=== PATIENT | male | born 1960 | race Caucasian/White ===

== ENCOUNTER 2016-12-19 17:11 | Inpatient (IN) | payer BC ==
[~2016-12-19] VITALS: Ht 185.4 cm; Wt 84.7 kg
[2016-12-19 17:18] VITALS: BP 203/112; PULSE 69; RESP 16; TEMP 98.1; O2SAT 98
[2016-12-19] MEDS ORDERED: PROPOFOL 200 MG/20 ML AMP IV ONE ×2 (17:30→17:45)
[2016-12-19 17:51] VITALS: O2SAT 99
--- NOTE | 2016-12-19 17:59 | PD ---
HPI Chief Complaint: Fall Time Seen by Provider: 17:21 Travel History International Travel<30 days: No Contact w/Intl Traveler<30days: No Traveled to known affect area: No History of Present Illness HPI 56-year-old male that presents to the ED for evaluation of fall. Per patient he was on a ladder doing some yardwork when I was go close to him and trying to prevent himself from getting stung he jumped from the ladder about 4 feet and landed on his left foot. Patient had immediate pain and deformity to the left ankle. Ambulance was called and brought him here. Patient has an obvious deformity to the left ankle with likely dislocation and fracture. No sign of skin involvement but definite deformity noted. Per patient the pain is 7 out of 10. Patient was given 10 mg of morphine via EVAC He denies any prior injuries to this ankle. No head injury or chest pain. No back pain. No injury in any other area. He has no orthopedic doctor. He has no allergies to medication. Denies any chest pain. No heart history. No allergies to medication. PFSH Past Medical History ?: Not Social History Alcohol Use: No Tobacco Use: No Substance Use: No Allergies-Medications (Allergen,Severity, Reaction): Coded Allergies: No Known Allergies (Unverified , 12/19/16) Reported Meds & Prescriptions Reported Meds & Active Scripts Active Reported B12 (Cyanocobalamin) 1,000 Mcg Tab Multi Vitamin Mens (Multiple Vitamin) 1 Tab Tab Review of Systems Except as stated in HPI: all other systems reviewed are Neg Physical Exam Narrative GENERAL: SKIN: Warm and dry. HEAD: Atraumatic. Normocephalic. EYES: Pupils equal and round. No scleral icterus. No injection or drainage. ENT: No nasal bleeding or discharge. Mucous membranes pink and moist. Tongue is midline. No uvula deviation. NECK: Trachea midline. No JVD. CARDIOVASCULAR: Regular rate and rhythm. No murmurs, S3, S4. RESPIRATORY: No accessory muscle use. Clear to auscultation. Breath sounds equal bilaterally. GASTROINTESTINAL: Abdomen soft, non-tender, nondistended. Hepatic and splenic margins not palpable. MUSCULOSKELETAL: Extremities without clubbing, cyanosis, or edema. No obvious deformities. Full range of motion of the upper and lower extremities bilaterally. 2+ pulses bilaterally. Patient has significant deformity to the ankle with the foot displaced laterally. Tenting of the skin noted on the medial malleolus but no open skin noted. Good capillary refill in the toes. Unable to move the ankle but able to move the toes. NEUROLOGICAL: Awake and alert. No obvious cranial nerve deficits. Motor grossly within normal limits. Five out of 5 muscle strength in the arms and legs. Normal speech. PSYCHIATRIC: Appropriate mood and affect; insight and judgment normal. Data Data Last Documented VS Vital Signs Date Time Temp Pulse Resp B/P (MAP) Pulse Ox O2 Delivery O2 Flow Rate FiO2 12/19/16 18:23 61 16 172/90 (117) 96 Room Air 12/19/16 17:51 2.00 12/19/16 17:18 98.1 Orders Orders Ankle, Limited (Ap&Lat) (12/19/16 ) Propofol 200 Mg/20 Ml Inj (Diprivan 200 (12/19/16 17:30) Splint Or Brace Apply/Monitor (12/19/16 17:31) Electrocardiogram (12/19/16 17:31) Complete Blood Count With Diff (12/19/16 17:31) Basic Metabolic Panel (Bmp) (12/19/16 17:31) Prothrombin Time / Inr (Pt) (12/19/16 17:31) Act Partial Throm Time (Ptt) (12/19/16 17:31) Propofol 200 Mg/20 Ml Inj (Diprivan 200 (12/19/16 17:45) Ankle, Limited (Ap&Lat) (12/19/16 ) Hydromorphone Pf Inj (Dilaudid Pf Inj) (12/19/16 18:00) Chest, Single Ap (12/19/16 ) Fiberglass Short Leg Splint Ad (12/19/16 ) Fiberglass Sugartong Sp Ad Sl (12/19/16 ) Admit Order (Ed Use Only) (12/19/16 19:02) Consult Orthopedic (12/19/16 ) Admit To Inpatient (12/19/16 ) Vital Signs (Adult) Q4H (12/19/16 19:01) Activity Bed Rest (12/19/16 19:01) Diet Npo (12/20/16 Breakfast) Diet Regular Basic (12/19/16 Dinner) Sodium Chlor 0.9% 1000 Ml Inj (Ns 1000 M (12/19/16 19:01) Sodium Chloride 0.9% Flush (Ns Flush) (12/19/16 19:15) Sodium Chloride 0.9% Flush (Ns Flush) (12/19/16 21:00) Ondansetron Inj (Zofran Inj) (12/19/16 19:15) Comprehensive Metabolic Panel (12/20/16 06:00) Complete Blood Count With Diff (12/20/16 06:00) Acetaminophen (Tylenol) (12/19/16 19:15) Acetamin-Hydrocod 325-5 Mg ([place] 5-325 (12/19/16 19:15) Hydromorphone Pf Inj (Dilaudid Pf Inj) (12/19/16 19:15) Docusate Sodium-Senna (Nimisha-Colace) (12/19/16 21:00) Magnesium Hydroxide Liq (Milk Of Magnesi (12/19/16 19:15) Sennosides (Senokot) (12/19/16 19:15) Bisacodyl Supp (Dulcolax Supp) (12/19/16 19:15) Lactulose Liq (Lactulose Liq) (12/19/16 19:15) Inpatient Certification (12/19/16 ) Metoprolol Tartrate (Lopressor) (12/19/16 21:00) Labs Laboratory Tests Test 12/19/16 18:10 White Blood Count 4.8 TH/MM3 Red Blood Count 3.86 MIL/MM3 Hemoglobin 13.2 GM/DL Hematocrit 38.5 % Mean Corpuscular Volume 99.7 FL Mean Corpuscular Hemoglobin 34.2 PG Mean Corpuscular Hemoglobin Concent 34.3 % Red Cell Distribution Width 13.3 % Platelet Count 253 TH/MM3 Mean Platelet Volume 7.3 FL Neutrophils (%) (Auto) 58.8 % Lymphocytes (%) (Auto) 26.7 % Monocytes (%) (Auto) 12.0 % Eosinophils (%) (Auto) 1.8 % Basophils (%) (Auto) 0.7 % Neutrophils # (Auto) 2.8 TH/MM3 Lymphocytes # (Auto) 1.3 TH/MM3 Monocytes # (Auto) 0.6 TH/MM3 Eosinophils # (Auto) 0.1 TH/MM3 Basophils # (Auto) 0.0 TH/MM3 CBC Comment DIFF FINAL Differential Comment Prothrombin Time 11.6 SEC Prothromb Time International Ratio 1.0 RATIO Activated Partial Thromboplast Time 24.6 SEC MDM Medical Decision Making Medical Screen Exam Complete: Yes Emergency Medical Condition: Yes Medical Record Reviewed: Yes Interpretation(s) CBC & BMP Diagram 12/19/16 18:10 coags WNL Last Impressions Chest X-Ray 12/19/16 0000 Signed Impressions: Service Date/Time: Monday, December 19, 2016 18:03 - CONCLUSION: Suspected early or mild left base pneumonia. Patrice Fenton MD Ankle X-Ray 12/19/16 0000 Signed Impressions: Service Date/Time: Monday, December 19, 2016 17:59 - CONCLUSION: Interim reduction and casting of the fracture dislocation of the left ankle into near-anatomic alignment. Patrice Fenton MD Differential Diagnosis Fracture versus dislocation versus bruise versus contusion versus fall Narrative Course 56-year-old that presents to the ED for evaluation of injury to his right ankle. Patient was properly examined and was found to have signs and symptoms consistent appears to be fracture dislocation. X-ray was done and show fracture dislocation of the left ankle. Case discussed immediately with my attending Dr. Main who evaluated the patient and recommends conscious sedation. After explaining procedure to the patient and she agreed to it conscious sedation was performed. Please refer to my attendings note. This was performed under my attending supervision. We were able to get good reduction but fracture still present and unstable. X-ray was done and show fracture. Dislocation appears to be reduced. Labs were ordered. Case will be consulted with orthopedic surgeon. Patient was given IV pain meds. Case discussed with Dr. Mann who recommends admission to medicine for surgery tomorrow. Wants me to put a consult to Dr. Blake. Case discussed with Dr. Myers who agrees to admission. Diagnosis Primary Impression: Bimalleolar fracture of left ankle Qualified Codes: S82.842A - Displaced bimalleolar fracture of left lower leg, initial encounter for closed fracture Admitting Information Admitting Physician Requests: Observation Johnathan Keller Dec 19, 2016 17:59
[2016-12-19] MEDS ORDERED: HYDROmorphone HCL PF 1 MG/ML VIAL IV PUSH ONE (18:00)
--- NOTE | 2016-12-19 18:07 | RADRPT ---
EXAM DATE/TIME: 12/19/2016 17:59 [facility] COMPARISON: ANKLE LEFT LIMITED (AP&LAT), December 19, 2016, 17:27. INDICATIONS : Post reduction left ankle, fell off ladder MEDICAL HISTORY : None. SURGICAL HISTORY : None. ENCOUNTER: Subsequent ACUITY: 1 day PAIN SCORE: 0/10 LOCATION: Left Ankle FINDINGS: Ankle dislocation as well as the medial and lateral malleoli fractures have been reduced and casted. Alignment is near-anatomic. CONCLUSION: Interim reduction and casting of the fracture dislocation of the left ankle into near-anatomic alignm ent. Patrice Fenton MD on December 19, 2016 at 18:05 Board Certified Radiologist. This report was verified electronically.
--- NOTE | 2016-12-19 18:08 | RADRPT ---
EXAM DATE/TIME: 12/19/2016 17:27 [facility] COMPARISON: No previous studies available for comparison. INDICATIONS : Left ankle pain, fell off ladder MEDICAL HISTORY : None. SURGICAL HISTORY : None. ENCOUNTER: Initial ACUITY: 1 day PAIN SCORE: 10/10 LOCATION: Left Ankle FINDINGS: There is evidence of severe dislocation of the talus in relation to the distal tibia and fibula. Th ere are acute displaced fractures involving the medial malleolus and distal fibular shaft also. CONCLUSION: Severe lateral dislocation of the talus in relation to the distal tibia and fibula with acute displac ed fractures of the medial malleolus and distal shaft of the fibula. Earl Duque MD on December 19, 2016 at 17:34 Board Certified Radiologist. This report was verified electronically.
--- NOTE | 2016-12-19 18:12 | RADRPT ---
EXAM DATE/TIME: 12/19/2016 18:03 [facility] COMPARISON: No previous studies available for comparison. INDICATIONS : Cough. MEDICAL HISTORY : None. SURGICAL HISTORY : None. ENCOUNTER: Initial ACUITY: 1 day PAIN SCORE: 0/10 LOCATION: Bilateral chest FINDINGS: Mild hazy infiltrates in the left mid and lower lung. No pleural effusion seen. No pneumothorax. Righ t lung is clear. Normal heart size. CONCLUSION: Suspected early or mild left base pneumonia. Patrice Fenton MD on December 19, 2016 at 18:10 Board Certified Radiologist. This report was verified electronically.
[2016-12-19 18:23] VITALS: BP 172/90; PULSE 61; RESP 16; O2SAT 96
[2016-12-19] MEDS ORDERED: MULTTAB4 (18:29)
[2016-12-19] MEDS ORDERED: CYAN1TAB24 (18:29)
--- NOTE | 2016-12-19 18:29 | PD ---
Data Data Last Documented VS Vital Signs Date Time Temp Pulse Resp B/P (MAP) Pulse Ox O2 Delivery O2 Flow Rate FiO2 12/19/16 18:23 61 16 172/90 (117) 96 Room Air 12/19/16 17:51 2.00 12/19/16 17:18 98.1 Orders Orders Ankle, Limited (Ap&Lat) (12/19/16 ) Propofol 200 Mg/20 Ml Inj (Diprivan 200 (12/19/16 17:30) Splint Or Brace Apply/Monitor (12/19/16 17:31) Electrocardiogram (12/19/16 17:31) Complete Blood Count With Diff (12/19/16 17:31) Basic Metabolic Panel (Bmp) (12/19/16 17:31) Prothrombin Time / Inr (Pt) (12/19/16 17:31) Act Partial Throm Time (Ptt) (12/19/16 17:31) Propofol 200 Mg/20 Ml Inj (Diprivan 200 (12/19/16 17:45) Ankle, Limited (Ap&Lat) (12/19/16 ) Hydromorphone Pf Inj (Dilaudid Pf Inj) (12/19/16 18:00) Chest, Single Ap (12/19/16 ) Fiberglass Short Leg Splint Ad (12/19/16 ) Fiberglass Sugartong Sp Ad Sl (12/19/16 ) Labs Laboratory Tests Test 12/19/16 18:10 White Blood Count 4.8 TH/MM3 Red Blood Count 3.86 MIL/MM3 Hemoglobin 13.2 GM/DL Hematocrit 38.5 % Mean Corpuscular Volume 99.7 FL Mean Corpuscular Hemoglobin 34.2 PG Mean Corpuscular Hemoglobin Concent 34.3 % Red Cell Distribution Width 13.3 % Platelet Count 253 TH/MM3 Mean Platelet Volume 7.3 FL Neutrophils (%) (Auto) 58.8 % Lymphocytes (%) (Auto) 26.7 % Monocytes (%) (Auto) 12.0 % Eosinophils (%) (Auto) 1.8 % Basophils (%) (Auto) 0.7 % Neutrophils # (Auto) 2.8 TH/MM3 Lymphocytes # (Auto) 1.3 TH/MM3 Monocytes # (Auto) 0.6 TH/MM3 Eosinophils # (Auto) 0.1 TH/MM3 Basophils # (Auto) 0.0 TH/MM3 CBC Comment DIFF FINAL Differential Comment Prothrombin Time 11.6 SEC Prothromb Time International Ratio 1.0 RATIO Activated Partial Thromboplast Time 24.6 SEC MDM Supervised Visit with MITA: Yes Narrative Course The history, exam, and medical decision-making in the associated midlevel provider note were completed with my assistance. I reviewed and agree with the findings presented. I attest that I had a [id number] encounter with the patient on the same day, and personally performed and documented my assessment and findings in the medical record. *My assessment and Findings: This is a 56-year-old male who presents to the emergency department having sustained an ankle fracture dislocation when he fell off a ladder avoiding a wasp nest. There is significant skin tenting and deformity of the ankle on arrival. X-ray was obtained and patient was sedated and the ankle was reduced and he was splinted. Patient will be admitted for surgical intervention. Procedures Procedure Narrative After the risks and benefits were discussed the following procedure was performed: MODERATE SEDATION: The patient was placed on a campus monitor and pulse oximetry. An ambu bag and suction was immediately available at bedside. The patient was monitored by the nurse. Oxygen saturation, heart rate and blood pressure were monitored. Procedural sedation was acheived using 140 mg of propofol. The patient was observed until awake and alert. Procedural Sedation time in attendance was 30 minutes. Ankle reduction: The left ankle was reduced with traction and splinted. Patient had a normal neurovascular exam following reduction. He tolerated the procedure well. Kayla Main MD Dec 19, 2016 18:29
[2016-12-19 18:44] LABS: APTT (PATIENT) 24.6 SEC (24.3-30.1); AUTOMATED NEUTROPHIL # 2.8 TH/MM3 (1.8-7.7); BASOPHIL % 0.7 % (0.0-2.0); EOSINOPHIL # 0.1 TH/MM3 (0-0.4); EOSINOPHIL % 1.8 % (0.0-4.0); HEMATOCRIT 38.5 % (39.0-51.0); HEMO FLAGS DIFF FINAL; LYMPH % 26.7 % (9.0-44.0); LYMPHOCYTE # 1.3 TH/MM3 (1.0-4.8); MEAN CELL VOLUME 99.7 FL (80.0-100.0); MEAN CORPUSCULAR HEMOGLOBIN 34.2 PG (27.0-34.0); MEAN CORPUSCULAR HGB CONC 34.3 % (32.0-36.0); NEUT % 58.8 % (16.0-70.0); PLATELET COUNT 253 TH/MM3 (150-450); PROTHROMBIN TIME - PATIENT 11.6 SEC (9.8-11.6); RED BLOOD COUNT 3.86 MIL/MM3 (4.50-5.90); RED CELL DISTRIBUTION WIDTH 13.3 % (11.6-17.2); WHITE BLOOD COUNT 4.8 TH/MM3 (4.0-11.0)
--- NOTE | 2016-12-19 19:13 | HHI.HP ---
[facility] Ilan Bush D.O. Admission Diagnosis left distal tibia and fibula fracture Diagnoses: (1) Ankle fracture, left Diagnosis: Principal (2) HTN (hypertension) Diagnosis: Principal (3) PNA (pneumonia) Diagnosis: Principal Travel History International Travel<30 Days: No Contact w/Intl Traveler <30 Da: No Traveled to Known Affected Are: No History of Present Illness This is a 56-year-old male with no significant PMH who was brought to the ER with complaints of left ankle pain after a fall. Patient was on a ladder approx 4ft off the ground trimming a lucio, jumped off and landed on his left ankle after trying to get away from multiple wasps. No head trauma or LOC. On arrival, BP 203/112, HR 69, O2 sat 98% on RA, Afebrile. BP currently 172/90, HR 61. CBC essentially unremarkable. Chemistry pending. INR normal. CXR with mild/early LLL PNA. Ankle X-ray with left ankle fracture, s/p reduction in ER. Dr. Hart consulted by ER physician, plan for surgical intervention. Review of Systems Except as stated in HPI: all other systems reviewed are Neg ROS: 14 point review of systems otherwise negative. Past Family Social History Past Medical History PMH: None Past Surgical History PAST SURGICAL HISTORY: None Allergies: Coded Allergies: No Known Allergies (Unverified , 12/19/16) Family History PAST FAMILY HISTORY: Reviewed. No h/o DM or CAD Social History PAST SOCIAL HISTORY: Drinks wine daily. Negative for tobacco or drugs. Physical Exam Vital Signs Vital Signs Date Time Temp Pulse Resp B/P (MAP) Pulse Ox O2 Delivery O2 Flow Rate FiO2 12/19/16 18:23 61 16 172/90 (117) 96 Room Air 12/19/16 17:51 99 2.00 12/19/16 17:18 98.1 69 16 203/112 (142) 98 Physical Exam PE: GENERAL: Middle-aged white male in no acute distress. and family at bedside HEENT: PERRLA, EOMI. No scleral icterus or conjunctival pallor. No lid lag or facial droop. CARDIOVASCULAR: Regular rate and rhythm. No obvious murmurs to auscultation. No chest tenderness to palpation. RESPIRATORY: No obvious rhonchi or wheezing. Clear to auscultation. Breath sounds equal bilaterally. GASTROINTESTINAL: Abdomen soft, non-tender, nondistended. BS normal. MUSCULOSKELETAL: Extremities without clubbing, cyanosis, or edema. No obvious deformities. Left ankle s/p reduction w/ splint. NEUROLOGICAL: Awake, alert and oriented x4. No focal neurologic deficits. Moving both upper and lower extremities spontaneously. Laboratory Laboratory Tests Test 12/19/16 18:10 White Blood Count 4.8 Red Blood Count 3.86 Hemoglobin 13.2 Hematocrit 38.5 Mean Corpuscular Volume 99.7 Mean Corpuscular Hemoglobin 34.2 Mean Corpuscular Hemoglobin Concent 34.3 Red Cell Distribution Width 13.3 Platelet Count 253 Mean Platelet Volume 7.3 Neutrophils (%) (Auto) 58.8 Lymphocytes (%) (Auto) 26.7 Monocytes (%) (Auto) 12.0 Eosinophils (%) (Auto) 1.8 Basophils (%) (Auto) 0.7 Neutrophils # (Auto) 2.8 Lymphocytes # (Auto) 1.3 Monocytes # (Auto) 0.6 Eosinophils # (Auto) 0.1 Basophils # (Auto) 0.0 CBC Comment DIFF FINAL Differential Comment Prothrombin Time 11.6 Prothromb Time International Ratio 1.0 Activated Partial Thromboplast Time 24.6 Result Diagram: 12/19/16 1810 Caprini VTE Risk Assessment Caprini VTE Risk Assessment: Mod/High Risk (score >= 2) Caprini Risk Assessment Model Point Value = 1 Point Value = 2 Point Value = 3 Point Value = 5 Age 41-60 Minor surgery BMI > 25 kg/m2 Swollen legs Varicose veins or History of unexplained or recurrent spontaneous Oral contraceptives or hormone replacement Sepsis (< 1 month) Serious lung disease, including pneumonia (< 1 month) Abnormal pulmonary function Acute myocardial infarction Congestive heart failure (< 1 month) History of inflammatory bowel disease Medical patient at bed rest Age 61-74 Arthroscopic surgery Major open surgery (> 45 min) Laparoscopic surgery (> 45 min) Malignancy Confined to bed (> 72 hours) Immobilizing plaster cast Central venous access Age >= 75 History of VTE Family history of VTE Factor V Leiden Prothrombin [id number] Lupus anticoagulant Anticardiolipin antibodies Elevated serum homocysteine Heparin-induced thrombocytopenia Other congenital or acquired thrombophilia Stroke (< 1 month) Elective arthroplasty Hip, pelvis, or leg fracture Acute spinal cord injury (< 1 month) Prophylaxis Regimen Total Risk Factor Score Risk Level Prophylaxis Regimen 0-1 Low Early ambulation 2 Moderate Order ONE of the following: *Sequential Compression Device (SCD) *Heparin 5000 units SQ BID 3-4 Higher Order ONE of the following medications: *Heparin 5000 units SQ TID *Enoxaparin/Lovenox 40 mg SQ daily (WT < 150 kg, CrCl > 30 mL/min) *Enoxaparin/Lovenox 30 mg SQ daily (WT < 150 kg, CrCl > 10-29 mL/min) *Enoxaparin/Lovenox 30 mg SQ BID (WT < 150 kg, CrCl > 30 mL/min) AND/OR *Sequential Compression Device (SCD) 5 or more Highest Order ONE of the following medications: *Heparin 5000 units SQ TID (Preferred with Epidurals) *Enoxaparin/Lovenox 40 mg SQ daily (WT < 150 kg, CrCl > 30 mL/min) *Enoxaparin/Lovenox 30 mg SQ daily (WT < 150 kg, CrCl > 10-29 mL/min) *Enoxaparin/Lovenox 30 mg SQ BID (WT < 150 kg, CrCl > 30 mL/min) AND *Sequential Compression Device (SCD) Assessment and Plan Problem List: (1) Ankle fracture, left ICD Code: S82.892A - Other fracture of left lower leg, initial encounter for closed fracture (2) HTN (hypertension) ICD Code: I10 - Essential (primary) hypertension (3) PNA (pneumonia) ICD Code: J18.9 - Pneumonia, unspecified organism Assessment and Plan A/P: 1. Left Ankle Fx: s/p fall from ladder approx 4ft off ground, landed on left ankle. X-ray w/ severe lateral dislocation of the talus and acute displaced fractures of medial malleolus and distal shaft of the fibula, images reviewed by me, s/p reduction w/ splint placement in ER. Dr. Hart consulted by ER physician, plan is for surgical intervention in am. NPO, IVF, analgesics/ antiemetics as needed. 2. HTN: BP 203/112, HR 69 likely compounded by pain, BP currently 150's. No h /o HTN, not on home medications. Will monitor, start low-dose B-adonis. 3. PNA: CXR w/ mild/early LLL PNA, images reviewed by me. Pt asymptomatic, afebrile, no leukocytosis. Start on empiric treatment for CAP, DuoNeb prn. 4. DVT Prophylaxis: Anticoagulation post op per Ortho. 5. Social work for d/c planning as needed. 6. Case discussed w/ ER physician at length. Physician Certification 2 Midnight Certification Type: Admission for Inpatient Services Order for Inpatient Services The services are ordered in accordance with Medicare regulations or non- Medicare payer requirements, as applicable. In the case of services not specified as inpatient-only, they are appropriately provided as inpatient services in accordance with the 2-midnight benchmark. Estimated LOS (days): 2 days is the estimated time the patient will need to remain in the hospital, assuming treatment plan goals are met and no additional complications. Post-Hospital Plan: Not yet determined Trisha Myers MD Dec 19, 2016 19:13
[2016-12-19] MEDS ORDERED: ACETAMINOPHEN/HYDROcodone 325 MG/5 MG TAB PO PRN (19:15)
[2016-12-19] MEDS ORDERED: MAGNESIUM HYDROXIDE SUSP 30 ML CUP PO PRN (19:15)
[2016-12-19] MEDS ORDERED: ACETAMINOPHEN 325 MG TAB PO PRN (19:15)
[2016-12-19] MEDS ORDERED: BISACODYL 10 MG SUPP RECTAL PRN (19:15)
[2016-12-19] MEDS ORDERED: SODIUM CHLORIDE 0.9% FLUSH 10 ML FLUSH IV FLUSH PRN (19:15)
[2016-12-19] MEDS ORDERED: LACTULOSE SYRUP 20 GM/30 ML CUP PO PRN (19:15)
[2016-12-19] MEDS ORDERED: SENNOSIDES 8.6 MG TAB PO PRN (19:15)
[2016-12-19] MEDS ORDERED: RESP: ALBUTEROL 2.5 MG/IPRATROPIUM 0.5 MG NEB (PRN) NEB (19:15)
[2016-12-19] MEDS ORDERED: ONDANSETRON HCL 4 MG/2 ML VIAL IVP PRN (19:15)
[2016-12-19 19:21] VITALS: BP 137/89; PULSE 55; RESP 18; O2SAT 98
[2016-12-19] MEDS ORDERED: PILL SPLITTER OTHER PRN (19:45)
[2016-12-19 19:46] LABS: BICARBONATE 25.5 MEQ/L (21.0-32.0); POTASSIUM 4.2 MEQ/L (3.5-5.1)
[2016-12-19] MEDS: cefTRIAXone INJ 1,000 MG in SODIUM CHLORIDE 0.9% INJ 100 ML IV SCH (19:51)
[2016-12-19] MEDS: SODIUM CHLOR 0.9% 1000 ML INJ 1,000 ML IV SCH (19:51)
[2016-12-19] MEDS ORDERED: AZITHROMYCIN INJ 500 MG in SODIUM CHLOR 0.9% 250 ML INJ 250 ML IV SCH (21:00)
[2016-12-19] MEDS ORDERED: METOPROLOL TARTRATE 25 MG TAB PO SCH (21:00)
[2016-12-19 21:10] VITALS: BP 165/82; PULSE 60; RESP 18; TEMP 97; O2SAT 99
[2016-12-19] MEDS: DOCUSATE SODIUM 50 MG/SENNA 8.6 MG TAB PO SCH (21:34)
[2016-12-19] MEDS: SODIUM CHLORIDE 0.9% FLUSH 10 ML FLUSH IV FLUSH SCH (21:34)
[2016-12-19] MEDS: METOPROLOL TARTRATE 25 MG TAB PO SCH (21:57)
[2016-12-19] MEDS: HYDROmorphone HCL PF 1 MG/ML VIAL IV PRN (22:42)
[2016-12-20 00:40] VITALS: BP 157/89; PULSE 64; RESP 17; TEMP 98.8; O2SAT 97
[2016-12-20] MEDS: HYDROmorphone HCL PF 1 MG/ML VIAL IV PRN (02:44)
[2016-12-20 03:45] VITALS: BP 146/87; PULSE 59; RESP 18; TEMP 97.1; O2SAT 98
[2016-12-20] MEDS: SODIUM CHLOR 0.9% 1000 ML INJ 1,000 ML IV SCH ×2 (04:57→13:05)
[2016-12-20] MEDS: SODIUM CHLORIDE 0.9% FLUSH 10 ML FLUSH IV FLUSH SCH (06:44)
[2016-12-20] MEDS: DOCUSATE SODIUM 50 MG/SENNA 8.6 MG TAB PO SCH (06:44)
[2016-12-20] MEDS: METOPROLOL TARTRATE 25 MG TAB PO SCH (06:44)
[2016-12-20] MEDS ORDERED: ACETAMINOPHEN 1000 MG/100 ML 100 ML IV ONE (07:04)
[2016-12-20] MEDS ORDERED: MIDAZOLAM HCL 2 MG/2 ML VIAL ONE (07:05)
[2016-12-20] MEDS ORDERED: FAMOTIDINE 20 MG/2 ML VIAL ONE (07:05)
[2016-12-20] MEDS ORDERED: GENTAMICIN SULFATE 80 MG/2 ML VIAL ONE (07:06)
--- NOTE | 2016-12-20 07:11 | PD.ORT.PN ---
Subjective Subjective Remarks Fall from ladder fourth ROM. Was trimming a tree when wasps attacked causing him to fall. He had a left ankle fracture dislocation which was closed. Patient is examined bedside with no other associated symptoms or complaints Objective Vitals Vital Signs Date Time Temp Pulse Resp B/P (MAP) Pulse Ox O2 Delivery O2 Flow Rate FiO2 12/20/16 00:40 98.8 64 17 157/89 (111) 97 12/19/16 21:27 12/19/16 21:10 97.0 60 18 165/82 (109) 99 12/19/16 19:21 55 18 137/89 (105) 98 Room Air 12/19/16 18:23 61 16 172/90 (117) 96 Room Air 12/19/16 17:51 99 2.00 12/19/16 17:18 98.1 69 16 203/112 (142) 98 I/O 12/19/16 12/19/16 12/19/16 12/20/16 12/20/16 12/20/16 07:00 15:00 23:00 07:00 15:00 23:00 Intake Total 734 ml 1104 ml Output Total 350 ml Balance 384 ml 1104 ml Intake Oral 360 ml IV Total 374 ml 1104 ml Output Urine Total 350 ml # Bowel Movements 0 Result Diagram: 12/19/16 1810 12/19/16 1920 Other Results Laboratory Tests Test 12/19/16 18:10 Prothromb Time International Ratio 1.0 RATIO Prothrombin Time 11.6 SEC (9.8-11.6) Objective Remarks Bilateral upper extremities: Full range of motion and neurovascularly intact right lower extremity: Full range of motion neurovascularly intact Left lower extremity: Splint intact with sensation in toes is able to move toes appropriately. With good capillary refills. No pain with knee or hip range of motion Assessment & Plan Assessment and Plan Left bimalleolar ankle fracture Nothing by mouth Sign consents for surgery this morning with Dr. Blake for open reduction internal fixation. We'll plan on discharge is afternoon if patient is doing well with pain control and getting around safely with a walker. He will maintain splint with elevation and will follow-up with Dr. Blake or SIOBHAN in 2 weeks Elijah Murrell Jr. Dec 20, 2016 07:11
[2016-12-20] MEDS ORDERED: DEXAMETHASONE SOD PHOS 4 MG/ML VIAL ONE (07:14)
[2016-12-20] MEDS ORDERED: SODIUM CHLOR 0.9% 250 ML INJ 250 ML ONE (07:33)
[2016-12-20] MEDS ORDERED: VANCOMYCIN HCL 1000 MG VIAL ONE (07:33)
[2016-12-20] MEDS: cefTRIAXone INJ 1,000 MG in SODIUM CHLORIDE 0.9% INJ 100 ML IV SCH (07:59)
--- NOTE | 2016-12-20 08:20 | PD.OP ---
cc: Joey Blake MD Operative Report Date of Surgery: Dec 20, 2016 Preoperative Diagnosis: Displaced left ankle bimalleolar fracture Postoperative Diagnosis: Procedure: Open reduction internal fixation left ankle Anesthesia: Gen. Surgeon: Joey Blake Quality Nurse(s): EDUARD Fitzpatrick PA-C The surgical procedure was assisted by my physician graphic design assistant. My P.A. presence was necessary throughout this case for the manipulation and positioning of the surgical extremity. My P.A. was assisting me throughout the duration of this procedure. The skill set of a physician graphic design assistant was medically necessary to complete this procedure. During the surgical case the technical writer was working at the back table and the physician graphic design assistant was directly assisting me. Operation and Findings: Patient was seen and evaluated preoperatively and found to have a displaced left ankle fracture. Informed consent was obtained after a detailed discussion of risk and benefits of surgery. The operative site was marked. Patient was brought to the OR, placed on the OR table, and given IV sedation and general endotracheal anesthesia. IV antibiotics were given preoperatively. A timeout procedure was performed. The left leg was prepped with alcohol followed by Hibiclens and draped in the usual sterile fashion. Attention was turned towards the distal fibula. A four-inch incision was made over the distal fibula. The subcutaneous tissue was dissected with Bovie. The fracture site was visualized. The fracture site was cleaned with curets. The fracture was now reduced. The fracture keyed into anatomic alignment. K-wires were used to hold provisional fixation. A ITS plate was selected. The plate was provisionally held to bone with K-wires. 3.5 cortical screws were used to compress the plate to bone. Multiple screws were placed above and below the fracture. Next attention was turned towards the medial malleolus. The medial malleolus supposed through a 3 cm incision. Saphenous vein was retracted. Fracture was visualized. Fracture was cleaned with curettes. Fracture was now reduced and keyed into anatomic alignment. K wires were used to hold provisional fixation. 2 guidepins for the 4.0 cannulated screws were placed in a retrograde fashion across the fracture. Fluoroscopy was used to confirm guidepin placement. Cannulated drill was placed over the guidepin. 2 appropriate length screws were now placed. Good compression was applied. Fluoroscopy confirmed well aligned fracture with well-placed hardware. Next, attention was turned to the syndesmosis. The syndesmosis was stressed. There was no widening of the syndesmosis with external rotation of the ankle. Incisions were thoroughly irrigated. The subcutaneous tissue was closed with 3- 0 Vicryl and the skin was closed with 3-0 nylon. Sterile dressings were applied. A well molded well-padded splint was applied. The patient was transferred to Recovery in stable condition. Needle and sponge counts were correct. Joey Blake MD Dec 20, 2016 08:20
[2016-12-20] MEDS ORDERED: HYDR-3288 PO (08:21)
[2016-12-20] MEDS ORDERED: MORPHINE SULFATE 4 MG/ML INJ IV PUSH PRN (08:30)
--- NOTE | 2016-12-20 08:41 | MB ---
cc: ROMEO MONROE DATE OF CONSULTATION: 12/20/2016 REASON FOR CONSULTATION Displaced left ankle fracture. HISTORY OF PRESENT ILLNESS Etienne is a 56-year-old male who was trimming branches. He was standing on a step ladder approximately 4 feet high. He had multiple wasps flying towards him. He jumped off the ladder to escape. He had immediate left ankle pain. He was unable to stand or ambulate. He presented to the emergency room where x-rays revealed a displaced left ankle fracture. He is currently awake and alert on the orthopedic floor. His only complaint is his left ankle. He denies any dizziness, syncope or loss of consciousness. PAST MEDICAL HISTORY SURGERIES None. ALLERGIES None. ILLNESSES None. SURGERIES None. SOCIAL HISTORY The patient drinks wine most days. He denies tobacco or drug use. FAMILY HISTORY Noncontributory. REVIEW OF SYSTEMS The patient denies headache, visual changes, neck pain, chest pain, shortness of breath, abdominal pain, nausea, vomiting or recent weight loss. He complains of left ankle pain. Pain is worse with movement. PHYSICAL EXAMINATION GENERAL: The patient is a well-developed, well-nourished 56-year-old male, in no acute distress. He is awake and alert. He is alert and oriented x3. VITAL SIGNS: Temperature 97.1, pulse 59, respirations 18, blood pressure 146/87, O2 sat 98% on room air. HEAD: The patient is normocephalic. Pupils are equal. NECK: Soft, nontender. Trachea is midline. ABDOMEN: Soft, nontender, nondistended. EXTREMITIES: Bilateral upper extremities reveals no pain with shoulder, elbow or wrist motion. He has intact sensation in all fingers. He has good cap refill in all fingers. Medical Reimbursement Manager strength is +5. Radial pulses palpable bilaterally. Examination of right leg reveals no pain with hip, knee or ankle motion. Skin is intact. Dorsalis pedis pulses palpable. Sensation is intact. Examination of left leg reveals no pain with hip or knee motion. Skin is intact. Dorsalis pedis pulses palpable. Sensation is intact. X-RAYS X-rays of the left ankle were reviewed. X-rays reveal a displaced left ankle bimalleolar fracture. IMPRESSION Displaced left ankle fracture. PLAN Treatment options were discussed with the patient. At this point I would recommend open reduction, internal fixation of left ankle. Risks of surgery include bleeding, infection, injuries to arteries, nerves and blood vessels, painful hardware as well as medical complications including blood clot, stroke, heart attack and . All questions were answered. Also discussed with him possible ankle stiffness and post-traumatic arthritis. I will plan on surgery today. A mid-level provider in my office (nurse practitioner or physician bakery assistant) may see this patient on follow-up visits and continue to implement the objectives of this plan including: Starting or adjusting medications, injections , cast application, orthotics, brace application, physical therapy, radiological studies (including x-ray, MRI, CT, ultrasound, bone scan), vascular studies, neurologic studies, specialist consultation, and proceeding with surgical management, as appropriate. MD ANA King/JOE /8:21 AM /8:28 AM KRISTEN
[2016-12-20] MEDS ORDERED: DO NOT ADM ANY ANTICOAGULANT DRUGS PRN (08:44)
[2016-12-20] MEDS ORDERED: WALKER WHEELS/F1 MIS (08:48)
[2016-12-20] MEDS ORDERED: Post-op Orders (for Pharmacy) MISC XX ONE (09:00)
[2016-12-20] MEDS ORDERED: *morphine SULFATE 8 MG/ML PERIprocedure ONLY ONE (09:01)
[2016-12-20 09:45] VITALS: BP 170/97; PULSE 69; RESP 18; TEMP 97.3; O2SAT 100
[2016-12-20] MEDS: ACETAMINOPHEN/HYDROcodone 325 MG/7.5 MG TAB PO PRN ×4 (09:47→18:57)
[2016-12-20 11:26] VITALS: BP 153/89; PULSE 56; RESP 17; TEMP 98.1; O2SAT 95
[2016-12-20] MEDS ORDERED: ONDANSETRON HCL 4 MG/2 ML VIAL IV PUSH ONE (12:00)
[2016-12-20] MEDS ORDERED: PROPOFOL 200 MG/20 ML AMP IV ONE (12:00)
[2016-12-20] MEDS ORDERED: LACTATED RINGER'S 1000 ML INJ 1,000 ML IV ONE (12:00)
[2016-12-20] MEDS ORDERED: DOCU100C PO (13:48)
--- NOTE | 2016-12-20 14:32 | EKG ---
Date Performed: 12/19/2016 Time Performed: 19:08:16 PTAGE: 56 years EKG: SINUS BRADYCARDIA WITH SINUS ARRHYTHMIA WITH FIRST DEGREE AV BLOCK NONSPECIFIC T-WAVE ABNOR MALITY ABNORMAL ECG NO PREVIOUS TRACING DOCTOR: Rj Arias Interpretating Date/Time 12/20/2016 14:27:05
[2016-12-20 15:59] VITALS: BP 155/82; PULSE 48; RESP 16; TEMP 98; O2SAT 97
[2016-12-20] MEDS ORDERED: ceFAZolin 2 GM PREMIX 50 ML IV SCH (16:00)
--- NOTE | 2016-12-20 16:10 | RADRPT ---
EXAM DATE/TIME: 12/20/2016 08:09 [facility] COMPARISON: ANKLE LEFT LIMITED (AP&LAT), December 19, 2016, 17:59. INDICATIONS : Left ankle fracture repair. OR. MEDICAL HISTORY : None. SURGICAL HISTORY : None. ENCOUNTER: Initial ACUITY: 1 day PAIN SCORE: Non-responsive. LOCATION: Left ankle FINDINGS: Plate is seen bridging the fibular fracture. Cortical lag screw is seen bridging the medial malleolu s fracture. Alignment anatomic. CONCLUSION: Anatomic alignment. Erick Howard MD FACR on December 20, 2016 at 16:07 Board Certified Radiologist. This report was verified electronically.
[2016-12-20 16:23] LABS: AUTOMATED NEUTROPHIL # 7.2 TH/MM3 (1.8-7.7); BASOPHIL % 0.1 % (0.0-2.0); HEMO FLAGS DIFF FINAL; LYMPH % 4.2 % (9.0-44.0); LYMPHOCYTE # 0.3 TH/MM3 (1.0-4.8); MEAN CELL VOLUME 98.8 FL (80.0-100.0); MEAN CORPUSCULAR HEMOGLOBIN 32.5 PG (27.0-34.0); MEAN CORPUSCULAR HGB CONC 32.9 % (32.0-36.0); MONO % 1.7 % (0.0-8.0); PLATELET COUNT 283 TH/MM3 (150-450); RED BLOOD COUNT 3.95 MIL/MM3 (4.50-5.90); RED CELL DISTRIBUTION WIDTH 13.3 % (11.6-17.2); WHITE BLOOD COUNT 7.7 TH/MM3 (4.0-11.0)
[2016-12-20 16:35] LABS: ANION GAP 9 MEQ/L (5-15); AST (GOT) 20 U/L (15-37); BICARBONATE 23.5 MEQ/L (21.0-32.0); BLOOD UREA NITROGEN 8 MG/DL (7-18); CHLORIDE 103 MEQ/L (98-107); GLOMERULAR FILTRATION RATE 71 ML/MIN (>89); POTASSIUM 4.1 MEQ/L (3.5-5.1); SODIUM (NA) 135 MEQ/L (136-145)
[2016-12-20 16:37] LABS: ALT (GPT) 20 U/L (12-78)
[2016-12-20 16:39] LABS: ALKALINE PHOSPHATASE 67 U/L (45-117); TOTAL BILIRUBIN ADULT 0.5 MG/DL (0.2-1.0)
--- NOTE | 2016-12-20 17:28 | HHI.DS ---
Discharge Summary Admission Date Dec 19, 2016 at 19:05 Discharge Date: Dec 20, 2016 Admitting Diagnosis left distal tibia and fibula fracture (1) Ankle fracture, left ICD Code: S82.892A - Other fracture of left lower leg, initial encounter for closed fracture Diagnosis: Principal (2) HTN (hypertension) ICD Code: I10 - Essential (primary) hypertension Diagnosis: Secondary (3) PNA (pneumonia) ICD Code: J18.9 - Pneumonia, unspecified organism Diagnosis: Secondary Procedures Surgical repair of left ankle fracture Brief History - From Admission This is a 56-year-old male with no significant PMH who was brought to the ER with complaints of left ankle pain after a fall. Patient was on a ladder approx 4ft off the ground trimming a lucio, jumped off and landed on his left ankle after trying to get away from multiple wasps. No head trauma or LOC. On arrival, BP 203/112, HR 69, O2 sat 98% on RA, Afebrile. BP currently 172/90, HR 61. CBC essentially unremarkable. Chemistry pending. INR normal. CXR with mild/early LLL PNA. Ankle X-ray with left ankle fracture, s/p reduction in ER. Dr. Hart consulted by ER physician, plan for surgical intervention. CBC/BMP: 12/20/16 1455 12/20/16 1455 Significant Findings Laboratory Tests Test 12/19/16 18:10 12/19/16 19:20 12/20/16 14:55 Red Blood Count 3.86 MIL/MM3 (4.50-5.90) 3.95 MIL/MM3 (4.50-5.90) Hematocrit 38.5 % (39.0-51.0) Mean Corpuscular Hemoglobin 34.2 PG (27.0-34.0) Monocytes (%) (Auto) 12.0 % (0.0-8.0) Calcium Level 8.0 MG/DL (8.5-10.1) Estimat Glomerular Filtration Rate 75 ML/MIN (>89) 71 ML/MIN (>89) Hemoglobin 12.8 GM/DL (13.0-17.0) Mean Platelet Volume 6.9 FL (7.0-11.0) Neutrophils (%) (Auto) 94.0 % (16.0-70.0) Lymphocytes (%) (Auto) 4.2 % (9.0-44.0) Lymphocytes # (Auto) 0.3 TH/MM3 (1.0-4.8) Random Glucose 171 MG/DL (74-106) Sodium Level 135 MEQ/L (136-145) Hospital Course Mr. Garcia is a 56-year-old male. He was admitted secondary to left distal tibia-fibula fracture. This occurred after falling from a ladder. He had this surgically repaired and is doing well postop. Initially he had some dizziness but he is now ambulating well without dizziness. [facility] cleared this patient for discharge. Originally there was concern for possible pneumonia based on x-ray. Patient may have struck his side in the fall and this may represent a lung contusion. Patient denies any previous fever, cough, fatigue and has no white blood cell count to suggest infection. Hypertension was also present at time of admit but may have been related to pain or trauma. Patient reports his prior outpatient blood pressures have always been within normal limits, so this point is not a good candidate to start new blood pressure treatment. Discharge home today. Pt Condition on Discharge: Stable Discharge Disposition: Discharge Home Discharge Time: <= 30 minutes Discharge Instructions DIET: Follow Instructions for: As Tolerated, No Restrictions Activities you can perform: Regular-No Restrictions Follow up Referrals: Orthopedics - 2 Weeks @ [facility] with Joey Hart MD PCP Follow-up - 2 Weeks New Medications: Docusate Sodium (Docusate Sodium) 100 Mg Cap 100 MG PO BID PRN for CONSTIPATION, #60 CAP 0 Refills Hydrocodone-Acetaminophen (Burke) 7.5-325 mg Tab 1 TAB PO Q4H PRN for PAIN, #50 TAB 0 Refills Walker with Front Wheels (Walker with Front Wheels) 1 Mis Mis EA .ROUTE DIRECTED, #1 0 Refills Continued Medications: Cyanocobalamin (B12) 1,000 Mcg Tab Multiple Vitamin (Multi Vitamin Mens) 1 Tab Tab Mitchell Henry MD Dec 20, 2016 17:28
== END 2016-12-20 19:13 | disposition home or self-care (01) | DRG 492 ==
LOC: NEPC 17:11 → NEDH 19:05 → N06B 20:30
PROVIDERS: ADMIT Hospitalist; ATTEND Hospitalist
PROC: 0QSH04Z Reposition Left Tibia with Internal Fixation Device, Open Approach (ICD-10-PCS; principal; 2016-12-19)
DX: S82.842A Displaced bimalleolar fracture of left lower leg, initial encounter for closed fracture (principal); J18.9 Pneumonia, unspecified organism; I10 Essential (primary) hypertension; W11.XXXA Fall on and from ladder, initial encounter; Y92.9 Unspecified place or not applicable
CPT/HCPCS: 28435; 71010; 73600; 76000; 80048; 80053; 85025; 85610; 85730; 93005; 94150; 96374; 99156; C1713; J0131; J0456; J0690; J0696; J1100; J1170; J1580; J2250; J2270; J2405; J3010; J3370; J7030; J7050; J7120